=== PATIENT | male | born 1945 | race Caucasian/White ===

== ENCOUNTER 2022-06-05 12:06 | Outpatient (REF) | payer MEDICARE, SELFPAY ==
[2022-06-05 12:33] LABS: Binax Internal Control QC Valid; Binax Now Covid-19 Ag Negative (Negative); Binax Performed by: HO.BONILM
== END 2022-06-05 12:07 | disposition home or self-care (01) ==
LOC: HO.HMGCLDS 12:06
PROVIDERS: Visit Provider Physician Assistant
DX: Z13.89 Encounter for screening for other disorder (principal)
CPT/HCPCS: 87811

== ENCOUNTER 2022-06-05 12:48 | Outpatient (REF) | payer BC, MEDICARE, SELFPAY ==
[2022-06-05 15:33] LABS: Influenza A PCR NEGATIVE (Negative); Influenza B PCR NEGATIVE (Negative); Resp Syncy Virus RNA Qual PCR NEGATIVE (Negative); SARS COV2 PCR INHOUSE NEGATIVE (Negative)
== END 2022-06-05 12:49 | disposition home or self-care (01) ==
LOC: HO.LAB 12:48
PROVIDERS: Visit Provider Physician Assistant
DX: Z20.822 Contact with and (suspected) exposure to COVID-19 (principal); B34.9 Viral infection, unspecified
CPT/HCPCS: 0241U; 87811